=== PATIENT | female | born 1955 | race Caucasian/White ===

== ENCOUNTER 2022-01-20 13:09 | Inpatient (IN) ==
[2022-01-20] MEDS ORDERED: *HR* Dextrose 50 % in Water (Syg) 50 ML SYRINGE IVP PRN (20:46)
[2022-01-20] MEDS ORDERED: D5% in Water 1,000 ML IVC PRN (20:46)
[2022-01-20] MEDS ORDERED: Dextrose Gel 15 GM/37.5 ML TUBE PO PRN ×2 (20:46)
[2022-01-20] MEDS ORDERED: *HR* HYDROcodone/Acet 10/325 mg TABLET PO PRN (23:44)
[2022-01-20] MEDS ORDERED: Insulin DETEMIR 100 UNIT/ML per UNIT SUBQ ONE (23:45)
[2022-01-21] MEDS ORDERED: Albuterol Neb 0.63 MG/3 ML VIAL IH PRN
[2022-01-21] MEDS: cloNIDine HCL 0.1 MG TABLET PO SCH ×4 (01:17→20:56)
[2022-01-21] MEDS: Apixaban 5 MG TABLET PO SCH ×3 (01:17→20:56)
[2022-01-21] MEDS: Insulin LISPRO 300 UNITS/3 ML VIAL SUBQ SCH ×5 (01:18→20:53)
[2022-01-21] MEDS: Furosemide 40 MG TABLET PO SCH ×3 (01:18→20:56)
[2022-01-21] MEDS: hydrALAZINE 10 MG TABLET PO SCH ×4 (01:18→20:56)
[2022-01-21 05:01] LABS: Basophils # 0.1 K/mcL (0.0-0.2); Basophils % 0.6 %; Eosinophils # 0.2 K/mcL (0.0-0.6); Hematocrit 37.9 % (35.3-44.9); Hemoglobin 11.6 g/dL (11.5-15.4); Immature Granulocytes % 1.2 % (0-4); Lymphocytes # 1.6 K/mcL (0.6-4.6); Lymphocytes % 18.4 %; Mean Corpuscular HGB Conc 30.6 g/dL (31.6-35.5); Mean Corpuscular Hemoglobin 27.5 pg (28.0-33.3); Mean Corpuscular Volume 89.8 fL (83.0-100.0); Mean Platelet Volume 12.2 fL (9.4-12.4); Monocytes # 0.7 K/mcL (0.0-1.3); Monocytes % 8.2 %; Neutrophils # 5.9 K/mcL (1.6-8.9); Platelet Count 136 K/mcL (140-400); Red Blood Count 4.22 M/mcL (3.82-4.97); Red Cell Distribution Width 14.9 % (11.5-14.5); Segmented Neutrophils % 69.6 %; White Blood Count 8.4 K/mcL (4.3-11.1)
[2022-01-21 05:10] LABS: Calcium 9.3 mg/dL (8.6-10.3); Potassium 3.7 mEq/L (3.5-5.1)
[2022-01-21] MEDS: Cyanocobalamin (B-12) 1,000 MCG TABLET PO SCH (09:26)
[2022-01-21] MEDS: levoFLOXacin 750 MG TABLET PO SCH (09:26)
[2022-01-21] MEDS: Loratadine 10 MG TABLET PO SCH (09:26)
[2022-01-21] MEDS: Tolterodine LA (24 HR) 4 MG CAP.ER.24H PO SCH (09:28)
[2022-01-21] MEDS: (Empagliflozin [Jardiance] 10 MG Tablet) PO SCH (09:28)
[2022-01-21] MEDS: Metoprolol XL (24 HR) Succ 50 MG TAB.ER.24H PO SCH ×2 (09:28→17:54)
[2022-01-21] MEDS: Insulin DETEMIR 100 UNIT/ML X5UNITS SUBQ SCH ×2 (09:35→20:54)
[2022-01-21] MEDS: Tiotropium 10 INH DOSE IH SCH (10:09)
[2022-01-21] MEDS: Budesonide/Formoterol 160/4.5 1 PUFF INH IH SCH ×2 (10:11→20:28)
[2022-01-21] MEDS: *HR* HYDROcodone/Acet 10/325 mg TABLET PO PRN ×2 (14:19→20:56)
[2022-01-21] MEDS: polyethylene glycoL 3350 17 GM POWD.PACK PO SCH (20:53)
[2022-01-22] MEDS: *HR* HYDROcodone/Acet 10/325 mg TABLET PO PRN ×3 (06:08→21:58)
[2022-01-22] MEDS: polyethylene glycoL 3350 17 GM POWD.PACK PO SCH ×2 (08:35→21:56)
[2022-01-22] MEDS: Tolterodine LA (24 HR) 4 MG CAP.ER.24H PO SCH (08:37)
[2022-01-22] MEDS: Apixaban 5 MG TABLET PO SCH ×2 (08:37→21:58)
[2022-01-22] MEDS: Furosemide 40 MG TABLET PO SCH ×2 (08:37→21:57)
[2022-01-22] MEDS: cloNIDine HCL 0.1 MG TABLET PO SCH ×3 (08:38→21:56)
[2022-01-22] MEDS: hydrALAZINE 10 MG TABLET PO SCH ×3 (08:38→21:57)
[2022-01-22] MEDS: levoFLOXacin 750 MG TABLET PO SCH (08:38)
[2022-01-22] MEDS: Loratadine 10 MG TABLET PO SCH (08:38)
[2022-01-22] MEDS: Insulin LISPRO 300 UNITS/3 ML VIAL SUBQ SCH ×4 (08:41→21:59)
[2022-01-22] MEDS: Insulin DETEMIR 100 UNIT/ML X5UNITS SUBQ SCH ×2 (08:46→21:56)
[2022-01-22] MEDS: Tiotropium 10 INH DOSE IH SCH (10:07)
[2022-01-22] MEDS: Budesonide/Formoterol 160/4.5 1 PUFF INH IH SCH ×2 (10:08→20:52)
[2022-01-22] MEDS: (Empagliflozin [Jardiance] 10 MG Tablet) PO SCH (12:25)
[2022-01-22] MEDS: Metoprolol XL (24 HR) Succ 50 MG TAB.ER.24H PO SCH ×2 (12:25→16:39)
[2022-01-23] MEDS: *HR* HYDROcodone/Acet 10/325 mg TABLET PO PRN ×3 (06:02→21:36)
[2022-01-23] MEDS: Tiotropium 10 INH DOSE IH SCH (08:02)
[2022-01-23] MEDS: Budesonide/Formoterol 160/4.5 1 PUFF INH IH SCH ×2 (08:02→22:31)
[2022-01-23] MEDS: Apixaban 5 MG TABLET PO SCH ×2 (08:19→21:35)
[2022-01-23] MEDS: Loratadine 10 MG TABLET PO SCH (08:19)
[2022-01-23] MEDS: Tolterodine LA (24 HR) 4 MG CAP.ER.24H PO SCH (08:19)
[2022-01-23] MEDS: cloNIDine HCL 0.1 MG TABLET PO SCH ×3 (08:20→21:36)
[2022-01-23] MEDS: Furosemide 40 MG TABLET PO SCH ×2 (08:20→21:34)
[2022-01-23] MEDS: Cyanocobalamin (B-12) 1,000 MCG TABLET PO SCH (08:20)
[2022-01-23] MEDS: Metoprolol XL (24 HR) Succ 50 MG TAB.ER.24H PO SCH ×2 (08:21→17:08)
[2022-01-23] MEDS: hydrALAZINE 10 MG TABLET PO SCH ×3 (08:22→21:36)
[2022-01-23] MEDS: levoFLOXacin 750 MG TABLET PO SCH (08:22)
[2022-01-23] MEDS: polyethylene glycoL 3350 17 GM POWD.PACK PO SCH ×2 (08:24→21:34)
[2022-01-23] MEDS: Insulin DETEMIR 100 UNIT/ML X5UNITS SUBQ SCH ×2 (08:24→21:36)
[2022-01-23] MEDS: Insulin LISPRO 300 UNITS/3 ML VIAL SUBQ SCH ×4 (08:25→21:37)
[2022-01-23] MEDS: (Empagliflozin [Jardiance] 10 MG Tablet) PO SCH (08:40)
[2022-01-23 19:33] VITALS: PULSE 58
[2022-01-24] MEDS: *HR* HYDROcodone/Acet 10/325 mg TABLET PO PRN ×2 (04:43→13:31)
[2022-01-24 07:21] VITALS: BP 118/67; TEMP 97.4
[2022-01-24] MEDS: levoFLOXacin 750 MG TABLET PO SCH (08:08)
[2022-01-24] MEDS: Loratadine 10 MG TABLET PO SCH (08:09)
[2022-01-24] MEDS: Metoprolol XL (24 HR) Succ 50 MG TAB.ER.24H PO SCH (08:09)
[2022-01-24] MEDS: hydrALAZINE 10 MG TABLET PO SCH (08:09)
[2022-01-24] MEDS: Apixaban 5 MG TABLET PO SCH (08:09)
[2022-01-24] MEDS: cloNIDine HCL 0.1 MG TABLET PO SCH (08:09)
[2022-01-24] MEDS: Tolterodine LA (24 HR) 4 MG CAP.ER.24H PO SCH (08:09)
[2022-01-24] MEDS: polyethylene glycoL 3350 17 GM POWD.PACK PO SCH (08:10)
[2022-01-24] MEDS: Insulin DETEMIR 100 UNIT/ML X5UNITS SUBQ SCH (08:10)
[2022-01-24] MEDS: Insulin LISPRO 300 UNITS/3 ML VIAL SUBQ SCH ×2 (08:12→11:33)
[2022-01-24] MEDS: Furosemide 40 MG TABLET PO SCH (08:12)
[2022-01-24 08:52] VITALS: O2SAT 95
[2022-01-24] MEDS: (Empagliflozin [Jardiance] 10 MG Tablet) PO SCH (09:02)
[2022-01-24] MEDS: Tiotropium 10 INH DOSE IH SCH (10:09)
[2022-01-24] MEDS: Budesonide/Formoterol 160/4.5 1 PUFF INH IH SCH (10:14)
[2022-01-24 10:17] VITALS: RESP 19
== END 2022-01-24 15:34 | disposition home health service (06) | DRG 291 ==
LOC: INPGRE 22:57
PROVIDERS: ADMIT Family Medicine; ATTEND Family Medicine